=== PATIENT | female | born 1965 | race Caucasian/White ===

== ENCOUNTER → 2023-02-19 | Outpatient (CLI) | payer OTHER ==
[~2023-02-19] MED LIST: ASPIRIN ADULT L81 M1 PO; CLARITIN10 MG PO; IMDUR SA30 MG PO; LOSARTAN POTAS100 MG PO; NORVASC5 MG PO; PLAVIX75 M1 PO; PROZAC20 MG PO; Phenergan25 MG PO; VITAMIN D325 MCG PO
== END | disposition home or self-care (01) ==
LOC: CARD 01:01
PROVIDERS: ATTEND Internal Medicine Cardiovascular Disease
DX: I20.9 Angina pectoris, unspecified (principal); Z95.5 Presence of coronary angioplasty implant and graft